=== PATIENT | male | born 1995 | race Caucasian/White ===

== ENCOUNTER 2017-08-29 23:10 | Emergency (ER) | payer OTHER ==
--- NOTE | 2017-08-29 23:53 | EDPHY ---
H & P Stated Complaint: r thumb lac Time Seen by Provider: 08/29/17 23:30 HPI/ROS: Chief complaint: Right thumb laceration History of present illness: This is a 22-year-old male who presents to the emergency department for a right thumb laceration. Just prior to arrival he cut the top of his thumb with a knife. Mild pain. Mild bleeding controlled with a dressing. Patient is still moving the thumb well. No report of abnormal coolness or paresthesias in the thumb. His tetanus is up-to-date. - Personal History Current Tetanus Diphtheria and Acellular Pertussis (TDAP): Yes - Medical/Surgical History Other PMH: disautonomia - Social History Smoking Status: Never smoked - Physical Exam Exam: General: Alert, nontoxic Skin: 1 cm laceration over the mid extensor surface of the right thumb. Exploration does not reveal foreign body or deep structure injury. Musculoskeletal: Patient is flexing extending the thumb in the PIP and moving it in all johnson and MCP joint well with good strength. Vascular: Capillary refill brisk in the right thumb. Neurologic: Sensation intact using light touch and two-point discrimination. Constitutional: Initial Vital Signs Temperature (C) 37.4 C 08/29/17 23:18 Heart Rate 71 08/29/17 23:18 Respiratory Rate 16 08/29/17 23:18 Blood Pressure 136/68 H 08/29/17 23:18 O2 Sat (%) 95 08/29/17 23:18 O2 Delivery Mode Room Air Allergies/Adverse Reactions: No Known Allergies Allergy (Unverified 08/29/17 23:17) Home Medications: Medication Instructions Recorded Midodrine HCl 08/29/17 Medical Decision Making Procedures: Procedure: Laceration repair. Verbal consent was obtained from the patient. The 1 cm laceration on the right thumb was anesthetized in the usual fashion. The wound was irrigated, draped and explored to its base with a gloved finger. There were no deep structures involved. No tendon injury was identified. The wound was repaired with 5 0 Prolene, 2 simple interrupted sutures. The wound repair was simple. The procedure was performed by myself. ED Course/Re-evaluation: Patient seen under the supervision of my secondary supervising physician Dr. Ken Urbina. Patient presents for a right thumb laceration. The thumb is neurovascularly intact. He has good musculoskeletal control of it. The wound is cleaned, repaired and dressed. Home care is discussed. He is to follow up with a primary care doctor next week for recheck. Return precautions are given. Patient voiced understanding and agreement with plan. Differential Diagnosis: Included but not limited to laceration, deep structure injury, foreign body contamination Departure - Departure Disposition: Home, Routine, Self-Care Clinical Impression: Finger laceration Qualifiers: Encounter type: initial encounter Finger: thumb Damage to nail status: without damage Foreign body presence: without foreign body Laterality: right Qualified Code(s): S61.011A - Laceration without foreign body of right thumb without damage to nail, initial encounter Condition: Good Instructions: Care For Your Stitches (ED), Finger Laceration (ED), Acute Wounds (ED) Additional Instructions: Follow-up with a primary care doctor this week for recheck Stitches to be removed in 7 days If symptoms worsen or new symptoms develop return to the emergency room for recheck Referrals: NONE *PRIMARY CARE P,. [Primary Care Provider] - As per Instructions [facility],. [Clinic] - As per Instructions
[2017-08-30 00:35] VITALS: BP 124/76
== END 2017-08-30 00:33 | disposition home or self-care (01) ==
PROC: 0HQFXZZ Repair Right Hand Skin, External Approach (ICD-10-PCS; principal; 2017-08-29)
DX: S61.011A Laceration without foreign body of right thumb without damage to nail, initial encounter (principal); W26.0XXA Contact with knife, initial encounter